=== PATIENT | female | born 1965 | race American Indian/Alaskan Native ===

== ENCOUNTER 2016-05-24 14:02 | Outpatient (CLI) | payer OTHER ==
--- NOTE | 2016-05-24 14:33 | Mammography Report ---
Right mammogram: Compression cc and lateral views were obtained for area of asymmetry described on recent screening examination. The compression views however appears to demonstrate normal fibroglandular tissue with no significant finding. It is of note that the patient indicates that she has a disc from prior mammogram which apparently was not compared to the current study. I have asked the patient to make the disc available so that we may use of comparison. Impression: No significant finding. Recommendation: Annual mammogram followup. A comparison report will be issued when the prior exam is made available. BI-RADS CATEGORY: 1 = Negative ACR BI-RADS MAMMOGRAPHIC CODES: 0 = Needs additional imaging evaluation; 1 = Negative; 2 = Benign; 3 = Probably benign; 4 = Suspicious; 5 = Malignant; 6 = Known biopsy-proven malignancy COMMENT: 1. Dense breast tissue, i.e., adenosis, fibrocystic changes, etc., may obscure an underlying neoplasm. 2. Approximately 10% of cancers are not detected with mammography. 3. A negative mammography report should not delay biopsy if a clinically suspicious mass is present.
== END 2016-05-24 14:03 | disposition home or self-care (01) ==
LOC: SPVWC 14:02
PROVIDERS: ATTEND General Practice
DX: R92.8 Other abnormal and inconclusive findings on diagnostic imaging of breast (principal)
CPT/HCPCS: G0206-RT

== ENCOUNTER 2017-05-24 16:17 | Outpatient (CLI) | payer OTHER ==
--- NOTE | 2017-05-25 15:47 | Mammography Report ---
BILATERAL DIGITAL SCREENING MAMMOGRAM with CAD: 05/24/17 16:17:00 CLINICAL: Routine screening. COMPARISON:04/27/16 FINDINGS: The breasts are heterogeneously dense, which may obscure small masses. No mass, architectural distortion or suspicious calcifications. IMPRESSION: No mammographic evidence of malignancy. BI-RADS CATEGORY: 1 - - Negative RECOMMENDATION: Routine mammographic screening in one year. COMMENT: Patient follow-up letters are generated by our [employer] application.
== END 2017-05-24 16:18 | disposition home or self-care (01) ==
LOC: SPVWC 16:17
PROVIDERS: ATTEND General Practice
DX: Z12.31 Encounter for screening mammogram for malignant neoplasm of breast (principal)
CPT/HCPCS: 77067